=== PATIENT | male | born 1985 | race Caucasian/White ===

== ENCOUNTER 2019-07-28 17:07 | Emergency (ER) | payer MEDICAID ==
[~2019-07-28] VITALS: Ht 175.3 cm; Wt 113.6 kg
[2019-07-28 17:16] VITALS: BP 144/81
[2019-07-28] MEDS ORDERED: ipratropium/albuterol 3ml nebule NEB ONE (17:40)
[2019-07-28] MEDS ORDERED: predniSONE 20 mg tablet PO ONE (17:40)
[2019-07-28] MEDS ORDERED: PRED20TA PO (17:56)
[2019-07-28] MEDS ORDERED: AZIT500T PO (17:57)
== END 2019-07-28 18:30 | disposition home or self-care (01) ==
LOC: ER 17:08
DX: J45.901 Unspecified asthma with (acute) exacerbation (principal); J18.9 Pneumonia, unspecified organism; F41.9 Anxiety disorder, unspecified; Z87.442 Personal history of urinary calculi; Z88.1 Allergy status to other antibiotic agents; Z88.0 Allergy status to penicillin; Z79.899 Other long term (current) drug therapy
CPT/HCPCS: 71045; 94640; 99283; J7512